=== PATIENT | female | born 2000 | race Two or more races ===

== ENCOUNTER 2020-05-28 10:04 | Inpatient (IN) | payer OTHER ==
[~2020-05-28] VITALS: Ht 152.4 cm; Wt 77.1 kg
[2020-05-28] MEDS ORDERED: SYNTHROID50 MCG PO (11:04)
[2020-05-28] MEDS ORDERED: PRENATAL TABLE1 EAC1 PO (11:04)
[2020-05-28] MEDS ORDERED: IRO-PLEX LIQUI120 ML PO (11:04)
== END 2020-06-01 13:18 | disposition home or self-care (01) | DRG 788 ==
LOC: LDR 10:04 → OB/GYN 05-29 01:39
PROVIDERS: ADMIT Specialist; ATTEND Specialist
PROC: 10D00Z1 Extraction of Products of Conception, Low, Open Approach (ICD-10-PCS; principal; 2020-05-29)
PROC: 4A1HXFZ Monitoring of Products of Conception, Cardiac Rhythm, External Approach (ICD-10-PCS; 2020-05-29)
PROC: 3E033VJ Introduction of Other Hormone into Peripheral Vein, Percutaneous Approach (ICD-10-PCS; 2020-05-29)
DX: O66.3 Obstructed labor due to other abnormalities of fetus (principal); Z37.0 Single live birth; O76 Abnormality in fetal heart rate and rhythm complicating labor and delivery; O69.81X0 Labor and delivery complicated by cord around neck, without compression, not applicable or unspecified; Z20.828 Contact with and (suspected) exposure to other viral communicable diseases; Z3A.35 35 weeks gestation of pregnancy